=== PATIENT | female | born 1985 | race Caucasian/White ===

== ENCOUNTER 2016-08-18 14:56 | Emergency (ER) | payer OTHER | END 2016-08-18 17:55 | disposition home or self-care (01) | LOC: ER1 14:56 | DX: J06.9 Acute upper respiratory infection, unspecified (principal) | CPT/HCPCS: 87081; 87880; 99283 ==

== ENCOUNTER 2020-12-03 18:39 | Emergency (ER) | payer BC, OTHER ==
[~2020-12-03 18:39] MED LIST: AUGMENTIN 875-1 EACH PO; BENADRYL 50MG C50 MG PO; CEFUROXIME500 MG PO; COLACE 100MG C100 MG PO; KEFLEX CAP 500500 MG PO; MACROBID 100 M100 MG PO; PYRIDIUM200 MG PO; REGLAN10 MG PO; TAMIFLU75 MG PO
[2020-12-03 19:37] LABS: HEMOGLOBIN 14.7 gm/dl (12.3-15.3); RED BLOOD COUNT 4.31 M/UL (4.00-5.10); WHITE BLOOD COUNT 7.3 K/UL (4.5-11.0)
[2020-12-03 20:22] LABS: BUN/CREATININE RATIO 19 (0-10)
== END 2020-12-03 23:30 | disposition home or self-care (01) ==
LOC: ER1 18:39
PROVIDERS: Emergency Medicine
DX: R07.89 Other chest pain (principal); R53.1 Weakness; E03.9 Hypothyroidism, unspecified; Z86.718 Personal history of other venous thrombosis and embolism; Z86.73 Personal history of transient ischemic attack (TIA), and cerebral infarction without residual deficits; Z79.01 Long term (current) use of anticoagulants; Z79.899 Other long term (current) drug therapy
CPT/HCPCS: 71045; 80053; 81001; 82550; 82553; 83690; 83735; 83874; 83880; 84100; 84439; 84443; 84484; 84703; 85025; 85379; 85610; 85730; 93005; 99285; Q9967

== ENCOUNTER 2021-01-17 12:08 | Emergency (ER) | payer BC, OTHER ==
[2021-01-17 13:03] LABS: HEMOGLOBIN 14.6 gm/dl (12.3-15.3); RED BLOOD COUNT 4.35 M/UL (4.00-5.10); WHITE BLOOD COUNT 8.5 K/UL (4.5-11.0)
[2021-01-17 13:45] LABS: BUN/CREATININE RATIO 9 (0-10)
== END 2021-01-17 17:50 | disposition home or self-care (01) ==
LOC: ER1 12:08
PROVIDERS: Physician Assistant
DX: R42 Dizziness and giddiness (principal); R07.89 Other chest pain; F17.210 Nicotine dependence, cigarettes, uncomplicated
CPT/HCPCS: 70450; 71045; 80053; 82550; 82553; 83874; 84484; 85025; 85610; 85730; 93005; 99285

== ENCOUNTER 2021-07-19 13:39 | Emergency (ER) | payer BC, OTHER ==
[2021-07-19 14:21] LABS: HEMOGLOBIN 14.9 gm/dl (12.3-15.3); RED BLOOD COUNT 4.5 M/UL (4.00-5.10); WHITE BLOOD COUNT 4.4 K/UL (4.5-11.0)
[2021-07-19 14:45] LABS: BUN/CREATININE RATIO 7 (0-10)
[2021-07-19] MEDS ORDERED: CEPHALEXIN500 M1 PO (17:47)
== END 2021-07-19 18:10 | disposition home or self-care (01) ==
LOC: ER1 13:39
PROVIDERS: Physician Assistant
DX: U07.1 COVID-19 (principal); I10 Essential (primary) hypertension; F41.9 Anxiety disorder, unspecified; N39.0 Urinary tract infection, site not specified; R07.81 Pleurodynia
CPT/HCPCS: 0240U; 71045; 80053; 81001; 82550; 82553; 83690; 83874; 84484; 84703; 85025; 85379; 85610; 87086; 93005; 99284

== ENCOUNTER 2021-10-09 17:19 | Emergency (ER) | payer BC, OTHER ==
[~2021-10-09 17:19] MED LIST changes: +CEPHALEXIN500 M1 PO
[2021-10-09 18:07] LABS: HEMOGLOBIN 13.4 gm/dl (12.3-15.3); RED BLOOD COUNT 4.05 M/UL (4.00-5.10); WHITE BLOOD COUNT 7.2 K/UL (4.5-11.0)
[2021-10-09 18:33] LABS: BUN/CREATININE RATIO 13 (0-10)
== END 2021-10-09 22:00 | disposition home or self-care (01) ==
LOC: ER1 17:19
PROVIDERS: Physician Assistant Medical
DX: R07.89 Other chest pain (principal); I10 Essential (primary) hypertension; Z86.73 Personal history of transient ischemic attack (TIA), and cerebral infarction without residual deficits; Z51.81 Encounter for therapeutic drug level monitoring
CPT/HCPCS: 71045; 80053; 82550; 82553; 83880; 84484; 85025; 85379; 85610; 93005; 99285